=== PATIENT | female | born 1995 | race Caucasian/White ===

== ENCOUNTER 2017-09-17 23:33 | Inpatient (IN) | payer OTHER ==
[~2017-09-17] VITALS: Ht 165.1 cm; Wt 70.9 kg
[2017-09-18] VITALS (30 sets, daily range): BP systolic 109–144; BP diastolic 57–91; PULSE 62–109; TEMP 97.6–99.8
[2017-09-18] MEDS ORDERED: PRENATAL MVI (01:39)
[2017-09-18 01:45] LABS: BASO % 0.3 % (0.0-2.0); EOS % 0.5 % (0-4.0); GRAN # 5.1 (1.4-6.5); GRAN % 66.4 % (42.2-75.2); LYMPH % 25.8 % (20.0-51.0); MEAN CELL VOLUME 100 fl (80.0-100.0); MEAN CORPUSCULAR HGB CONC 35 g/dl (33.0-37.0); MEAN PLATELET VOLUME 11.5 fl (7.4-10.4); MONO # 0.5 (0.1-0.6); MONO % 6.9 % (1.7-9.3); PLATELET COUNT 203 K/mm3 (130-400); RED BLOOD COUNT 3.34 M/mm3 (4.10-5.30); WHITE BLOOD COUNT 7.6 K/mm3 (4.8-10.8)
[2017-09-18 01:49] LABS: HEMATOCRIT 33.4 % (37.0-47.0); HEMOGLOBIN 11.7 g/dl (12.5-16.0); MEAN CORPUSCULAR HEMOGLOBIN 35 pg (27.0-31.0)
[2017-09-18] MEDS ORDERED: MOTRIN 800800 MG/TAB PO (07:53)
[2017-09-18] MEDS ORDERED: PERCOCET 325 MG1 TA2 PO (07:53)
[2017-09-19 09:00] VITALS: BP 107/68; PULSE 92; TEMP 98.4
[2017-09-19 16:25] VITALS: BP 114/75; PULSE 88; TEMP 97.3
[2017-09-19 22:40] VITALS: BP 125/90; PULSE 70; TEMP 98.3
[2017-09-20 08:30] VITALS: BP 118/77; PULSE 82; TEMP 98.1
== END 2017-09-20 14:10 | disposition home or self-care (01) | DRG 775 ==
LOC: LDRO 23:33 → OB 09-18 01:20 → LDR 09-18 01:20 → OB 09-18 09:40
PROVIDERS: Obstetrics & Gynecology
PROC: 10E0XZZ Delivery of Products of Conception, External Approach (ICD-10-PCS; principal; 2017-09-18)
PROC: 0KQM0ZZ Repair Perineum Muscle, Open Approach (ICD-10-PCS; 2017-09-18)
DX: O99.02 Anemia complicating childbirth (principal); D64.9 Anemia, unspecified; O77.0 Labor and delivery complicated by meconium in amniotic fluid; Z3A.39 39 weeks gestation of pregnancy; Z37.0 Single live birth
CPT/HCPCS: J2590; J7120

== ENCOUNTER 2019-12-02 22:38 | Inpatient (IN) | payer OTHER ==
[~2019-12-02] VITALS: Ht 165.1 cm; Wt 70.5 kg
[~2019-12-02 22:38] MED LIST: MOTRIN 800800 MG/TAB PO; PERCOCET 325 MG1 TA2 PO; PRENATAL MVI
[2019-12-02 22:45] VITALS: BP 118/68; PULSE 79; TEMP 98.4
[2019-12-02 23:00] VITALS: BP 114/71; PULSE 73
--- NOTE | 2019-12-02 23:00 | NUR ---
2220- Patient ambulatory to [facility]3 with . Patient visibly in pain with contractions and is asking for an epidural. Patient reports contractions since 0730 this morning but they have increased in strength and frequency since SROM at 2100. Patient requests to use restroom. 2225- EFM and TOCO on and tracing. SVE Complete/+2. application security architectMaria De Jesus MAYO notified. notified. Nurse Nevaehry RN notified. 2227- application security architectMaria De Jesus MAYO at bedside. Patient was directed to breathe through contractions until MD arrives. Patient is in control of breathing through contractions. 223- Patient states she needs to push. Patient pushed with contraction. 2238- Nurse-Attended of viable baby girl. Nuchal cord x1 reduced. Cord clamped by RN and cut by FOB. NB to mother's chest. NB care assumed by GAEL Herring. 223- at bedside. Labor room and patient prepped for repair. 224- Spontaneous delivery of placenta. Fundus massaged to firm. 2nd degree laceration repaired by MD with local anesthetic. Pericare provided. Ice pack applied. 2250- VORB for Pitocin 10mU/1ml IM. 2300- PP Recovery.
[2019-12-02 23:15] VITALS: BP 115/73; PULSE 85
[2019-12-02 23:30] VITALS: BP 106/68; PULSE 76
[2019-12-03] VITALS (7 sets, daily range): BP systolic 110–120; BP diastolic 62–79; PULSE 67–126; TEMP 97.3–98.5
[2019-12-03] MEDS ORDERED: PRENATAL MVI (00:36)
[2019-12-03] MEDS ORDERED: OMEGA-3 1000 MG1 CAP PO (00:36)
--- NOTE | 2019-12-03 10:28 | NUR ---
FLORENTINO parada responded to a community mental health social worker consult for the patient who inquired about DPOA-HC. FLORENTINO parada met with the patient and provided the DPOA-HC form and answered questions. The patient decided to look over the form with her . FLORENTINO parada collaborated the above information with the patient's nurse.
--- NOTE | 2019-12-03 11:42 | NUR ---
Initial visit; Parents thanked Chaplailn for offering congratulations and God's blessings for the of their daughter. Energy Sales Consultant thanked family for choosing [facility].
[2019-12-04 08:20] VITALS: BP 109/77; PULSE 89; TEMP 97.4
[2019-12-04] MEDS ORDERED: IBU600 MG PO (09:22)
[2019-12-04] MEDS ORDERED: PERCOCET 325 MG1 TA2 PO (09:23)
== END 2019-12-04 12:00 | disposition home or self-care (01) | DRG 807 ==
LOC: LDRO 22:38 → OB 22:40 → LDR 22:40 → OB 12-03 01:00
PROVIDERS: ADMIT Obstetrics & Gynecology
PROC: 10E0XZZ Delivery of Products of Conception, External Approach (ICD-10-PCS; principal; 2019-12-02)
PROC: 0KQM0ZZ Repair Perineum Muscle, Open Approach (ICD-10-PCS; 2019-12-02)
DX: O69.81X0 Labor and delivery complicated by cord around neck, without compression, not applicable or unspecified (principal); Z37.0 Single live birth; O70.1 Second degree perineal laceration during delivery; Z23 Encounter for immunization
CPT/HCPCS: J2590